=== PATIENT | female | born 1955 | race Caucasian/White ===

== ENCOUNTER 2018-11-25 07:55 | Day surgery (SDC) | payer OTHER ==
[~2018-11-25] VITALS: Ht 152.4 cm; Wt 71.5 kg
[2018-11-25] VITALS (16 sets, daily range): BP systolic 116–163; BP diastolic 56–76; PULSE 48–78; RESP 10–23; Ht 152.4 cm; Wt 71.5 kg
[~2018-11-25 07:55] MED LIST: TRAM50TA PO
[2018-11-25] MEDS ORDERED: GLYCOPYRROLATE 0.4 MG INJ ONE (08:36)
[2018-11-25] MEDS ORDERED: PROPOFOL 20 ML ONE (08:36)
[2018-11-25] MEDS ORDERED: ROCURONIUM 50 MG INJ ONE (08:36)
[2018-11-25] MEDS ORDERED: NEOSTIGMINE 3 MG/3 ML SYRINGE ONE (08:36)
[2018-11-25] MEDS ORDERED: CEFAZOLIN 1 GM INJ ONE (08:36)
[2018-11-25] MEDS ORDERED: FENTAnyl 50 MCG/ML VIAL ONE (08:37)
[2018-11-25] MEDS ORDERED: DEXAMETHASONE 4 MG/ML 5 ML INJ ONE (08:37)
[2018-11-25] MEDS ORDERED: MIDAZOLAM 1 MG/ML 2 ML INJ ONE (08:37)
[2018-11-25] MEDS ORDERED: ONDANSETRON 4 MG INJ ONE (08:37)
[2018-11-25] MEDS ORDERED: ROPIVACAINE 0.5 % 30 ML VIAL ONE (08:38)
[2018-11-25] MEDS ORDERED: LACTATED RINGER'S 1,000 ML IV SCH (09:00)
[2018-11-25] MEDS ORDERED: MEPERIDINE 25 MG INJ IV PRN (09:30)
[2018-11-25] MEDS ORDERED: FENTAnyl 50 MCG/ML VIAL IV PRN ×3 (09:30)
[2018-11-25] MEDS ORDERED: DIPHENHYDRAMINE 50 MG INJ IV PRN (09:30)
[2018-11-25] MEDS ORDERED: LABETALOL HCL 20MG INJ IV PRN (09:30)
[2018-11-25] MEDS ORDERED: TRIMETHOBENZAMIDE 100 MG/ML VIAL IM PRN (09:30)
[2018-11-25] MEDS ORDERED: ALBUTEROL 0.083% (NEB) 2.5 MG/3 ML AMP HHN PRN (09:30)
[2018-11-25] MEDS ORDERED: OXYCODONE/ACETAMINOPHEN (5/325) TAB PO PRN ×2 (09:30)
[2018-11-25] MEDS ORDERED: hydrALAzine 20 MG INJ IV PRN (09:30)
[2018-11-25] MEDS ORDERED: EPHEDrine 25 MG/5 ML SYG IV PRN (09:30)
[2018-11-25] MEDS ORDERED: MIDAZOLAM 1 MG/ML 2 ML INJ IV PRN (09:30)
[2018-11-25] MEDS ORDERED: IPRATROPIUM (NEB) 0.5 MG/2.5 ML AMP HHN PRN (09:30)
[2018-11-25] MEDS ORDERED: HYDROmorphONE 1 MG/5 ML IV SYRINGE IV PRN ×3 (09:30)
[2018-11-25] MEDS ORDERED: ONDANSETRON 4 MG INJ IV PRN (09:30)
[2018-11-25] MEDS ORDERED: POLYMYXIN/BACITRACIN 1L IRRIG ONE (09:39)
[2018-11-25] MEDS ORDERED: NEOMYC/POLYMYX/BACIT 30 GM OINT ONE (09:39)
[2018-11-25] MEDS ORDERED: KETOROLAC 30 MG INJ IV SCH (12:00)
[2018-11-25] MEDS ORDERED: morphine 2 MG INJ IV PRN (12:00)
== END 2018-11-25 13:49 | disposition home or self-care (01) ==
LOC: SDS 07:55
PROVIDERS: ATTEND Orthopaedic Surgery
DX: M72.2 Plantar fascial fibromatosis (principal)
CPT/HCPCS: 28060; 82306; J0690; J1100; J1170; J1885; J2250; J2405; J2710; J2795; J3010; Z7512; Z7610